=== PATIENT | female | born 1955 | race Caucasian/White ===

== ENCOUNTER 2019-02-20 14:27 | Inpatient (IN) | payer BC, OTHER ==
[~2019-02-20] VITALS: Ht 167.6 cm; Wt 81.0 kg
[2019-02-20] MEDS ORDERED: NOREPINEPHRINE 8 MG/250ML KIT 250 ML IV ONE (14:33)
[2019-02-20] MEDS ORDERED: EPINEPHrine HCL INJECTION 4 MG in SODIUM CHL 0.9% 250 ML IV ONE (15:00)
[2019-02-20] MEDS ORDERED: SODIUM BICARBONATE 8.4 % INJ 50ML VIAL IV ONE ×3 (15:00→17:45)
[2019-02-20] MEDS ORDERED: DOPamine 1600MCG/ML D5W 250 ML IV ONE ×2 (15:00→15:45)
[2019-02-20] MEDS ORDERED: NOREPINEPHRINE 8 MG/250ML KIT 250 ML IV SCH (15:00)
[2019-02-20] MEDS ORDERED: EPINEPHrine HCL 1 MG/10 ML SYRG IV ONE (15:00)
[2019-02-20] MEDS ORDERED: AMIODARONE HCL (50 MG/ ML) 3 ML VIAL IV PRN (15:00)
[2019-02-20] MEDS ORDERED: ATROPINE SULF 1 MG/10ml SYR IV ONE (15:00)
[2019-02-20] MEDS ORDERED: PHENYLEPHRINE INJ 20 MG in SODIUM CHL 0.9% 250 ML IV SCH (15:43)
[2019-02-20] MEDS ORDERED: PIPERACILLIN-TAZOB 3.375GM 100 ML IV ONE (15:45)
[2019-02-20] MEDS ORDERED: VANCOMYCIN 1GM/250ML 250 ML IV ONE (15:45)
[2019-02-20 15:48] LABS: Albumin 2.3 g/dL (3.4-5.0); Calcium 8.9 mg/dL (8.5-10.1); Magnesium 2.7 mg/dL (1.6-2.6); Potassium 3.8 mmol/L (3.5-5.1)
[2019-02-20 15:57] LABS: BUN/Creatinine Ratio 10.4; Bilirubin, Total 0.3 mg/dL (0.2-1.0); Total Protein 4.1 g/dL (6.4-8.2)
[2019-02-20 16:04] LABS: INR 1.4 (0.9-1.15); Partial Thromboplastin Time 45.3 sec (23.78-33.04); Prothrombin Time 14.7 sec (9.27-12.13)
[2019-02-20 16:38] LABS: Basophils # (auto) 0.1 uL; Basophils % (auto) 0.5 % (0.0-2.0); Eosinophils # (auto) 0 uL; Eosinophils % (auto) 0.2 % (0.0-7.0); Hematocrit 37.5 % (36.0-46.0); Hemoglobin 11.3 g/dL (12.2-16.2); Lymphocytes # (auto) 1.5 uL; Lymphocytes % (auto) 7.3 % (10.0-50.0); Mean Corpuscular Hemoglobin 31.6 pg (28.0-32.0); Mean Corpuscular Hgb Conc. 30.1 g/dL (32.0-36.0); Mean Corpuscular Volume 104.7 fL (80.0-100.0); Monocytes # (auto) 1.2 uL; Monocytes % (auto) 6.2 % (0.0-12.0); Neutrophils # (auto) 17.1 uL; Neutrophils % (auto) 85.8 % (37.0-80.0); Nucleated Red Blood Cells % 0.5 %; Platelet Count (auto) 189 10^3/uL (140-450); Red Blood Cells 3.58 10^6/uL (4.0-5.20); Red Cell Distribution Width 16.7 % (11.8-14.3); White Blood Cell 19.9 10^3/uL (4.4-10.8)
[2019-02-20] MEDS ORDERED: SODIUM BICARBONATE 8.4% INJ 50ML SYRINGE ONE ×3 (16:51→17:36)
[2019-02-20] MEDS ORDERED: SODIUM BICARBONATE 50ML VIAL 150 ML in SOD CHL 0.45% 1,000 ML IV ONE (17:15)
[2019-02-20 17:22] LABS: Amylase 101 U/L (25-115); Lipase 589 U/L (73-393)
[2019-02-20] MEDS ORDERED: SODIUM CHLORIDE 0.9% 1,000 ML IV ONE (17:45)
[2019-02-20 18:40] VITALS: BP 115/69
--- NOTE | 2019-02-20 18:40 | NUR ---
Respiratory note: ABG RESULTS REPORTED TO DR. DUMAS, NO NEW RESPIRATORY ORDERS GIVEN. PT REMAINS ON PREVIOUS VENT SETTINGS. WILL CONTINUE TO MONITOR.
[2019-02-20 18:41] LABS: Urine Bacteria NONE SEEN /hpf (None Seen); Urine Blood Negative /uL (Negative); Urine Hyaline Cast MOD /lpf (0 - 2); Urine Mucus FEW (None Seen); Urine Specific Gravity 1.024 (1.001-1.035); Urine WBC 2 /hpf (0 - 5)
[2019-02-20 18:43] LABS: Alcohol, Urine < 3.0 mg/dL (0-5); Amphetamine Screen, Urine NEGATIVE (NEGATIVE); Barbiturate Scree,Urine NEGATIVE (NEGATIVE); Benzodiazephine Screen, Urine NEGATIVE (NEGATIVE); Cannabinoid Screen, Urine NEGATIVE (NEGATIVE); Cocaine Screen, Urine NEGATIVE (NEGATIVE); Opiate Scree,Urine POSITIVE (NEGATIVE); Phencyclidine Screen, Urine NEGATIVE (NEGATIVE)
[2019-02-20] MEDS: NOREPINEPHRINE 8 MG/250ML KIT 250 ML IV SCH ×2 (19:40→23:59)
[2019-02-20] MEDS ORDERED: VANCOMYCIN PER PHARMACY 0 MG IV SCH (19:45)
[2019-02-20 20:00] VITALS: BP 116/71
[2019-02-20] MEDS: PHENYLEPHRINE INJ 20 MG in SODIUM CHL 0.9% 250 ML IV SCH (20:30)
[2019-02-20] MEDS ORDERED: PHENYLEPHRINE IV 0 ML IV ONE (20:31)
[2019-02-20] MEDS ORDERED: EPINEPHrine HCL 250 ML IV ONE (20:33)
[2019-02-20] MEDS: EPINEPHrine HCL INJECTION 4 MG in SODIUM CHL 0.9% 250 ML IV SCH (20:33)
[2019-02-20] MEDS: EPINEPHrine HCL 250 ML IV SCH (20:55)
[2019-02-20] MEDS ORDERED: VANCOMYCIN 750 MG in D5W 5% 250 ML IV SCH (21:00)
[2019-02-20] MEDS: DOPamine 1600MCG/ML D5W 250 ML IV SCH ×2 (21:11→22:02)
[2019-02-20 21:45] VITALS: BP 116/71
[2019-02-20 22:19] VITALS: BP 116/71
[2019-02-20] MEDS: ALBUTEROL SULF 2.5 MG/0.5ML(0.5%) NEB SOLN NEB SCH (22:19)
[2019-02-20] MEDS: IPRATROPIUM BROM 0.5 MG/2.5ML INH SOL NEB SCH (22:19)
[2019-02-20] MEDS: PIPERACILLIN-TAZOB 2.25GM 50 ML IV SCH (22:31)
[2019-02-20] MEDS: PHENYLEPHRINE INJ 20 MG in D5W 5% 250 ML IV SCH (23:00)
[2019-02-20] MEDS: SODIUM BICARBONATE 50ML VIAL 150 ML in D5W 5% 1,000 ML IV SCH (23:13)
[2019-02-21] VITALS (13 sets, daily range): BP systolic 111–152; BP diastolic 62–106
--- NOTE | 2019-02-21 | NUR ---
Patient bathe/linen change Patient given complete bath. Skin integrity assessed for any changes. Linens changed. Patient repositioned for comfort.
--- NOTE | 2019-02-21 00:30 | NUR ---
DRESSING CHANGE RIGHT FEMORAL LINE DRESSING CHANGE
[2019-02-21] MEDS: ALBUTEROL SULF 2.5 MG/0.5ML(0.5%) NEB SOLN NEB SCH ×6 (01:54→21:55)
[2019-02-21] MEDS: IPRATROPIUM BROM 0.5 MG/2.5ML INH SOL NEB SCH ×6 (01:54→21:55)
[2019-02-21] MEDS: SODIUM BICARBONATE 50ML VIAL 150 ML in D5W 5% 1,000 ML IV SCH (02:21)
[2019-02-21] MEDS: DOPamine 1600MCG/ML D5W 250 ML IV SCH ×2 (02:50→19:49)
--- NOTE | 2019-02-21 02:58 | NUR ---
Respiratory note: PT TRANSPORTED TO CT VIA AMBU AND O2 TANK, UNEVENTFUL. PT PLACED BACK ON PREVIOUS SETTINGS. WILL CONTINUE TO MONITOR.
--- NOTE | 2019-02-21 03:25 | NUR ---
Respiratory note: HOSPITALIST PAGED FOR ABG RESULTS. PT SPO2 80% ON 100% FIO2. WILL CONTINUE TO MONITOR.
--- NOTE | 2019-02-21 03:47 | NUR ---
Respiratory note: ABG RESULTS REPORTED TO BASEBALL COACH KHURRAM GUERRERO. INCREASED PEEP TO 8 CMH20. REPEAT ABG AT 0800.
[2019-02-21] MEDS: PHENYLEPHRINE INJ 20 MG in SODIUM CHL 0.9% 250 ML IV SCH (04:00)
[2019-02-21] MEDS: PIPERACILLIN-TAZOB 2.25GM 50 ML IV SCH ×4 (04:20→22:10)
[2019-02-21] MEDS: EPINEPHrine HCL 250 ML IV SCH (04:36)
[2019-02-21 10:18] LABS: Basophils # (auto) 0.1 uL; Basophils % (auto) 0.6 % (0.0-2.0); Eosinophils # (auto) 0 uL; Eosinophils % (auto) 0.1 % (0.0-7.0); Hematocrit 40.6 % (36.0-46.0); Hemoglobin 13.2 g/dL (12.2-16.2); Lymphocytes # (auto) 0.3 uL; Lymphocytes % (auto) 1.7 % (10.0-50.0); Mean Corpuscular Hgb Conc. 32.6 g/dL (32.0-36.0); Mean Corpuscular Volume 98.1 fL (80.0-100.0); Monocytes # (auto) 0.5 uL; Monocytes % (auto) 2.8 % (0.0-12.0); Neutrophils # (auto) 17.3 uL; Neutrophils % (auto) 94.8 % (37.0-80.0); Platelet Count (auto) 165 10^3/uL (140-450); Red Blood Cells 4.15 10^6/uL (4.0-5.20); Red Cell Distribution Width 15.5 % (11.8-14.3); White Blood Cell 18.2 10^3/uL (4.4-10.8)
[2019-02-21 10:28] LABS: INR 1.68 (0.9-1.15); Partial Thromboplastin Time 28.7 sec (23.78-33.04); Prothrombin Time 17.5 sec (9.27-12.13)
[2019-02-21 10:30] LABS: Calcium 6.6 mg/dL (8.5-10.1); Lactic Acid w/Reflex 8.7 mmol/L (0.4-2.0); Magnesium 1.2 mg/dL (1.6-2.6)
[2019-02-21 10:32] LABS: BUN/Creatinine Ratio 13.3
[2019-02-21 10:54] LABS: Potassium 2.3 mmol/L (3.5-5.1)
[2019-02-21] MEDS ORDERED: POTASSIUM CHLORIDE 40 MEQ, LIDOCAINE 1% (LOCAL ANESTH.) 4 ML in SODIUM CHL 0.9% 100 ML IV ONE (11:30)
[2019-02-21] MEDS: PHENYLEPHRINE INJ 20 MG in D5W 5% 250 ML IV SCH ×2 (12:07→16:10)
[2019-02-21] MEDS ORDERED: POTASSIUM PHOSPHATE 44 MEQ in D5W 5% 250 ML IV ONE (12:15)
[2019-02-21] MEDS: MAGNESIUM SULFATE 1GM/100ML 100 ML IV SCH ×3 (12:21→14:57)
[2019-02-21] MEDS: LINEZOLID 600MG/300ML 300 ML IV SCH ×2 (12:41→22:09)
[2019-02-21] MEDS ORDERED: EPINEPHrine HCL 1 MG/10 ML SYRG IV ONE (12:49)
[2019-02-21] MEDS ORDERED: AMIODARONE HCL (50 MG/ ML) 3 ML VIAL IV ONE (12:49)
[2019-02-21] MEDS ORDERED: ATROPINE SULF 1 MG/10ml SYR IV ONE (12:49)
[2019-02-21] MEDS ORDERED: CALCIUM CHLOR(10%) 100MG/ML 10ML SYRINGE IV ONE (12:49)
[2019-02-21] MEDS: ALBUMIN 25% 100 ML IV SCH ×2 (13:38→19:56)
[2019-02-21] MEDS ORDERED: FUROSEMIDE 40 MG/4 ML VIAL IV ONE (13:45)
[2019-02-21] MEDS: EPINEPHrine HCL INJECTION 4 MG in SODIUM CHL 0.9% 250 ML IV SCH (21:09)
[2019-02-22] VITALS (83 sets, daily range): BP systolic 88–143; BP diastolic 41–81
[2019-02-22] MEDS: NOREPINEPHRINE 8 MG/250ML KIT 250 ML IV SCH ×2 (00:52→22:34)
[2019-02-22] MEDS: SODIUM CHLORIDE 0.9% 2,000 ML IV ONE (01:15)
[2019-02-22] MEDS: IPRATROPIUM BROM 0.5 MG/2.5ML INH SOL NEB SCH ×6 (02:05→22:43)
[2019-02-22] MEDS: ALBUTEROL SULF 2.5 MG/0.5ML(0.5%) NEB SOLN NEB SCH ×6 (02:05→22:40)
--- NOTE | 2019-02-22 03:23 | NUR ---
Admit to ICU from ER on vent MARLYS HURST admitted to ICU via gurney on restoration technician, intubated and being bagged by Respiratory Therapist. Patient transferred to bed, connected to mechanical ventilator by therapist, MIGUEL ÁNGEL at bedside. Patient connected to ICU monitoring, weighed by bedscale, oriented to Ira Klein, primary RN, unit, ventilator and no sedation was given but pt is nonresponsive even to painful stimuli, pupils 6 on both eyes and fixed. NOTE: Right IJ, right wrist and left femoral central line patent and intact, coleman catheter draining to a clear urine, NGT connected to LIS. MRSA swab in the nares done and sent to lab.
[2019-02-22] MEDS ORDERED: EPINEPHrine HCL 250 ML IV ONE (03:36)
[2019-02-22] MEDS: EPINEPHrine HCL INJECTION 4 MG in SODIUM CHL 0.9% 250 ML IV SCH ×2 (03:47→22:35)
--- NOTE | 2019-02-22 04:00 | NUR ---
Medrec and vaccination assessment not done, no family at bedside
[2019-02-22] MEDS: PIPERACILLIN-TAZOB 2.25GM 50 ML IV SCH ×4 (04:10→23:43)
[2019-02-22] MEDS: ALBUMIN 25% 100 ML IV SCH (04:10)
--- NOTE | 2019-02-22 04:30 | NUR ---
WOUND PHOTO IN THE LEFT WRIST TAKEN, SKIN TEAR NOTED AND PLACED OPTIFOAM IN THE AFFECTED WRIST
[2019-02-22] MEDS: DOPamine 1600MCG/ML D5W 250 ML IV SCH (04:38)
--- NOTE | 2019-02-22 06:00 | NUR ---
VITAL SIGNS VITAL SIGNS FROM 02/21 0200 UNTIL 0800 ARE IN PATIENTS CHART. UNABLE TO TRANSFER ON LINE
--- NOTE | 2019-02-22 06:50 | NUR ---
PAGED THE HOSPITALIST FOR LOW URINE OUTPUT, 20ML SINCE 329
--- NOTE | 2019-02-22 06:50 | NUR ---
Called lab to ff up CBC, CMP
[2019-02-22] MEDS: PHENYLEPHRINE INJ 20 MG in D5W 5% 250 ML IV SCH ×4 (08:20→16:16)
--- NOTE | 2019-02-22 09:30 | NUR ---
CHANNEL LIP STIFFENER INSOLES AT BEDSIDE
--- NOTE | 2019-02-22 09:45 | NUR ---
MD ROUNDS DR. CASIANO AT BEDSIDE. PER MD FAMILY IS AWARE OF PATIENTS POOR CONDITION. NO NEW ORDERS AT THIS TIME.
--- NOTE | 2019-02-22 09:55 | NUR ---
EEG COMPLETED AT BEDSIDE. CASEY REYES.
[2019-02-22] MEDS: LINEZOLID 600MG/300ML 300 ML IV SCH ×2 (10:00→21:36)
--- NOTE | 2019-02-22 10:20 | NUR ---
PENDING LABS LABS NOT YET TAKEN, CALLED LAB TO CONFIRM AND STATED THEY WERE UNABLE TO OBTAIN SAMPLE THIS MORNING AND NURSE WAS TO SEND OVER. NO COMMUNICATION OF SUCH THING REPORT. LABS DRAWN AND SENT OVER.
[2019-02-22 10:36] LABS: Hematocrit 37.1 % (36.0-46.0); Hemoglobin 12.2 g/dL (12.2-16.2); Mean Corpuscular Hemoglobin 31.6 pg (28.0-32.0); Mean Corpuscular Hgb Conc. 32.9 g/dL (32.0-36.0); Mean Corpuscular Volume 95.9 fL (80.0-100.0); Platelet Count (auto) 78 10^3/uL (140-450); Red Blood Cells 3.87 10^6/uL (4.0-5.20); Red Cell Distribution Width 15.2 % (11.8-14.3); White Blood Cell 22.4 10^3/uL (4.4-10.8)
--- NOTE | 2019-02-22 10:36 | NUR ---
WOUND CARE NOTE: Wound care in to see patient per wound care request regarding skin integrity issue that are noted present on admission, intubation status,and low Valerio score of 11, putting patient to high risk for skin breakdown. Patient is 63 years old female with admitting diagnosis of Cardiopulmonary Arrest. She has history of CVA and Asthma. Patient is resting in ICU premium bed in Rm. 111. She's intubated, sedated and mechanically ventilated. Patient appears to be in no pain using Ferguson Wong Faces Pain Scale. Skin assessment done with the assistance of patient's nurse, CASEY Vizcarra. Noted open partial thickness skin tear to patient's L wrist (4x2cm) and L posterolateral back (3x1cm) Skin tears are pink/ red, scant serous drainage noted,no odor noted. Bedside nurse cleansed patient's wounds and covered with Opti foam gentle dressing as MD ordered. Patient's L arm noted edematous and intact ecchymosis noted to her L lateral ankle. No pressure injury related issue noted. Repositioned patient for comfort facing her Rt. side, redistributed pressure points with pillows. Patient tolerated well. CASEY Vizcarra at bedside. RECOMMENDATION: Q3Days/PRN dressing change to skin tears; BID/PRN cleaning and application of Barrier cream to sacral, buttocks and perineum as preventative per MD order, Dietary consult for low Valerio score, frequent turning and repositioning schedule as condition permits, redistribute pressure points with pillows, elevate heels on pillows, Continue monitoring by Wound care while patient is mechanically ventilated. Addendum: 02/22/19 at 1459 by Gifty Genao RN Amended: Links added.
[2019-02-22 10:42] LABS: Basophils % (manual) 0 (0.0-2.0); Blast Cells 0; Myelocytes % 0; Promyelocytes % 0; Reactive Lymphocytes 0
[2019-02-22 10:50] LABS: Albumin 2.5 g/dL (3.4-5.0); Potassium 3.7 mmol/L (3.5-5.1)
[2019-02-22 10:52] LABS: BUN/Creatinine Ratio 17.5; Bilirubin, Total 1.2 mg/dL (0.2-1.0)
--- NOTE | 2019-02-22 11:00 | NUR ---
Family updated on pt status Family of MARLYS HURST updated on patient's status and condition. All questions and concerns addressed. ADA verbalized understanding. Per JORDAN Chiang and other members of family, password is to be used for door entrance.
[2019-02-22 11:02] LABS: Calcium 5.9 mg/dL (8.5-10.1)
--- NOTE | 2019-02-22 11:27 | NUR ---
COMMERCIAL REVIEW APPRAISER PAGED LABS RESULTED AND CRITICAL CALCIUM NOTED. MD PAGED TO NOTIFY ALONG WITH CURRENT U/O NOTED THIS SHIFT. AWAITING CALLBACK.
--- NOTE | 2019-02-22 11:28 | NUR ---
Family updated on pt status Family of MARLYS HURST updated on patient's status and condition. All questions and concerns addressed. Family verbalized understanding.
--- NOTE | 2019-02-22 11:34 | NUR ---
CALLED BACK STATING HE IS ON HIS WAY. NO NEW ORDERS AT THIS TIME.
--- NOTE | 2019-02-22 11:35 | NUR ---
DR. CASIANO PAGED FAMILY AT BEDSIDE REQUESTING RESULTS TO EEG. AWAITING CALLBACK.
--- NOTE | 2019-02-22 12:30 | NUR ---
EMAIL PRODUCTION SPECIALIST UPDATED DR. ZARCO CALLED, UPDATED ON PATIENTS STATUS VIA PHONE. MD STATING HE WILL NOT BE ABLE TO SEE PATIENT UNTIL LATER TONIGHT. NO URGENT MATTERS AT THIS TIME.
[2019-02-22 12:52] LABS: Band Neutrophils % (manual) 20; Eosinophils % (manual) 1 (0-7); Lymphocytes % (manual) 4 (10.0-50.0); Metamyelocytes % 3; Monocytes % (manual) 7 (0-12)
--- NOTE | 2019-02-22 13:00 | NUR ---
SURGICAL CONSULT DR. LEWIS CALLED, UPDATED ON CT OF ABD AND PATIENTS CURRENT CONDITION, AWAITING NEUROLOGISTS RESULTS. MD STATING HE IS TO BE CALLED BACK ONCE PATIENTS NEUROLOGICAL STANDPOINT IS CLEAR AT THIS TIME. JORDAN CABALLERO, AWARE OF MDS RESPONSE, ADA, AGREED STATING SHE DOES NOT WANT ANY PROCEDURES UNTIL DR. CASIANO HAS UPDATED ON HER STATUS.
--- NOTE | 2019-02-22 13:08 | NUR ---
COPY OF POA IN CHART UPDATED ADA AT BEDSIDE ON PATIENTS STATUS. AWAITING DR. CASIANO TO CALLBACK TO REVIEW EGD RESULTS. REPAGED.
[2019-02-22] MEDS ORDERED: FUROSEMIDE 20 MG/2 ML VIAL IV ONE (14:15)
--- NOTE | 2019-02-22 14:18 | NUR ---
CHECK INSPECTOR AT BEDSIDE MD UPDATED FAMILY ON PATIENTS STATUS. QUESTIONS AND CONCERNS ADDRESSED. SEE NEW ORDERS.
--- NOTE | 2019-02-22 16:43 | NUR ---
IMAGES REVIEWED WITH FAMILY DR. CASIANO AT BEDSIDE. MD REVIEWED LATEST HEAD CT AND EEG RESULTS. MD NOTIFIED OF POOR CONDITION AND POOR OUTCOME AT THIS TIME. QUESTIONS AND CONCERNS ADDRESSED WITH FAMILY AND POA. MD ENCOURAGED FAMILY AND FRIENDS TO VISIT AT THIS TIME. PER JORDAN CABALLERO, PATIENT WOULD NOT WANT LIFE PROLONGED WITH POOR NEURO CONDITION. COMFORT CART CALLED AT THIS TIME.
[2019-02-22] MEDS ORDERED: CALCIUM GLUC 4.65meq/50ml D5AE 50 ML IV ONE (18:30)
--- NOTE | 2019-02-22 18:30 | NUR ---
NG REMOVAL PATIENT REPOSITIONED AND APPEARS TO HAVE AN AIR LEAK, R.T AT BEDSIDE. PER R.T VOLUMES ARE LOW AND NOT CONSISTENT WITH PREVIOUS TV NOTED. INFORMED ONLY CHANGE HAS BEEN POSITION. PER R.T RECOMMENDING REMOVAL OF NG. NG REMOVED AT THIS TIME.
--- NOTE | 2019-02-22 18:35 | NUR ---
CHRISTMAS TREE FARM WORKER RAHEEL PATIENT DID NOT RESPOND TO LASIX 60MG IV. NO U/O. AWAITING CALLBACK
--- NOTE | 2019-02-22 19:21 | NUR ---
DR. CARABALLO CALLED BACK. NEW ORDERS IN PLACE.
[2019-02-22] MEDS ORDERED: FUROSEMIDE INJECTION 250 MG in SODIUM CHL 0.9% 225 ML IV SCH (19:30)
--- NOTE | 2019-02-22 19:45 | NUR ---
OPEN NOTES ASSUMED CARE OF PATIENT. ASSESSMENT DONE-REFER INTERVENTIONS GCS 3, PUPILS 6MM FIXED, NO RESPONSE NOTED SINUS TACHYCARDIA, BP SUPPORTED WITH IV LEVOPHED,IV DOPAMINE AND IV EPI GTT ALL LIMBS EDEMATOUS,PULSES PALPABLE. STILL NO URINE OUTPUT - WILL START IV LASIX GTT RIGHT FEMORAL WITH ZOLL CATHETER-DRESSING DRY AND INTACT, BROWN PORT CAN FLUSH BUT NO BACKFLOW RIGHT EJ G18 -SALINE FLUSHED REPOSITIONED.ORAL CARE DONE.
--- NOTE | 2019-02-22 20:50 | NUR ---
CODE STATUS TALKED TO PATIENT'S SON JUAN DIEGO AND JORDAN ADA ABOUT CODE STATUS THEY REQUEST TO PUT PATIENT ON CHEM CODE ONLY - ACLS MEDS CAN BE GIVEN. ADA SAID NO MORE HEROIC MEASURES, NO CPR, TO KEEP PATIENT ON THE PRESSORS SHE HAS ON AND KEEP HER VENTILATED. PAGED HOSPITALIST
--- NOTE | 2019-02-22 21:58 | NUR ---
RE PAGED HOSPITALIST
--- NOTE | 2019-02-22 21:59 | NUR ---
HOSPITALIST CALLED BACK TALKED TO REMI GUERRERO. INFORMED HER OF SON AND POA DECISION REGARDING CODE STATUS THEY WANTED CHEM CODE REMI GUERRERO NOTED , SHE WILL GO HERE IN ICU AND SIGN THE FORM
--- NOTE | 2019-02-22 23:38 | NUR ---
HOSPITALIST REMI GUERRERO SIGNED THE CODE FORM ASKED ABOUT PAIN MEDICATION FOR COMFORT- NO ORDERS RECEIVED Addendum: 02/22/19 at 2354 by Lilian Owens RN NO PAIN NOTED AT THE MOMENT GCS 3 HR 107/MIN - PRESSOR WAS INCREASED EARLIER WILL CONTINUE TO MONITOR
[2019-02-23] VITALS (81 sets, daily range): BP systolic 86–131; BP diastolic 34–79
--- NOTE | 2019-02-23 00:05 | NUR ---
TEMP TEMP 99.7F COOLING MEASURES DONE
--- NOTE | 2019-02-23 00:43 | NUR ---
PAGED NEPHRO TO CLARIFY ORDER
[2019-02-23] MEDS: PHENYLEPHRINE INJ 20 MG in D5W 5% 250 ML IV SCH ×3 (01:00→08:08)
[2019-02-23] MEDS: SODIUM CHLORIDE 0.9% 2,000 ML IV ONE (01:15)
--- NOTE | 2019-02-23 01:15 | NUR ---
MD EDWARDS HAS NOT CALLED BACK DR. CARABALLO HAS NOT CALLED BACK. NS BOLUS DISCUSSED WITH CHARGE NURSE CLAUDIA. PATIENT ONLY HAS 30MLS OF URINE SINCE IV LASIX WAS STARTED AT START OF SHIFT. IV LASIX GTT AT 10ML/HR PATIENT LUNG SOUNDS CLEAR LIMBS ARE EDEMATOUS, BP FLUCTUATES ON IV LEVOPHED,DOPAMINE AND EPI GTT WILL GIVE NS BOLUS 1L FIRST THEN WILL ASSESS
[2019-02-23] MEDS: NOREPINEPHRINE 8 MG/250ML KIT 250 ML IV SCH (01:21)
--- NOTE | 2019-02-23 02:00 | NUR ---
TEMP RE CHECK TEMP 99F WILL CONTINUE TO MONITOR
[2019-02-23] MEDS: ALBUTEROL SULF 2.5 MG/0.5ML(0.5%) NEB SOLN NEB SCH ×4 (02:24→14:27)
[2019-02-23] MEDS: IPRATROPIUM BROM 0.5 MG/2.5ML INH SOL NEB SCH ×4 (02:24→14:27)
--- NOTE | 2019-02-23 03:08 | NUR ---
RE-ASSESS/NS BOLUS NS 1L GIVEN PATIENT STILL HAS LOW URINE OUTPUT LUNG SOUNDS COARSE,CRACKLES AT THE UPPER LOBES DIMINISHED AT THE BASES WILL HOLD THE OTHER 1L NS FOR NOW
[2019-02-23] MEDS: DOPamine 1600MCG/ML D5W 250 ML IV SCH (03:36)
[2019-02-23 03:54] LABS: Hematocrit 33.1 % (36.0-46.0); Hemoglobin 10.9 g/dL (12.2-16.2); Mean Corpuscular Hemoglobin 31.8 pg (28.0-32.0); Mean Corpuscular Hgb Conc. 33.1 g/dL (32.0-36.0); Mean Corpuscular Volume 95.9 fL (80.0-100.0); Platelet Count (auto) 70 10^3/uL (140-450); Red Blood Cells 3.45 10^6/uL (4.0-5.20); Red Cell Distribution Width 15.1 % (11.8-14.3); White Blood Cell 21.7 10^3/uL (4.4-10.8)
--- NOTE | 2019-02-23 04:00 | NUR ---
Patient bathe/linen change Patient given complete bath. Hair washed. Skin integrity assessed for any changes. Linens changed. Patient repositioned for comfort.
[2019-02-23 04:15] LABS: BUN/Creatinine Ratio 16.1; Potassium 4.5 mmol/L (3.5-5.1)
[2019-02-23 04:19] LABS: Bilirubin, Total 1.3 mg/dL (0.2-1.0); Calcium 5.8 mg/dL (8.5-10.1); Total Protein 3.9 g/dL (6.4-8.2)
--- NOTE | 2019-02-23 04:30 | NUR ---
SKIN/DRESSING CHANGED PATIENT HAS SKIN TEAR AT RIGHT WRIST AND RIGHT UPPER BACK - CLEANED , APPLIED THERA HONEY GEL LEFT WRIST - COVERED WITH OPTIFOAM NON ADHERENT AND WRAPPED WITH BANDAGE LEFT UPPER BACK - OPTIFOAM GENTLE LEFT UPPER ARM WITH MULTIPLE BLISTERS, RED AND WEEPING - CHUX APPLIED UNDERNEATH BOTH UPPER LIMBS SWOLLEN -BOTH ELEVATED WITH PILLOW SACRAL - INTACT
--- NOTE | 2019-02-23 04:31 | NUR ---
CRITICAL LAB RESULTS LAB STAFF CALLED TO REPORT CRITICAL LAB RESULTS CALCIUM 5.8, GLUCOSE 46, TROP 5.04 RE-CHECK BLOOD SUGAR PERIPHERALLY = 44 AWAITING CBC RESULTS THEN WILL PAGE HOSPITALIST
[2019-02-23 04:42] LABS: Basophils % (manual) 0 (0.0-2.0); Blast Cells 0; Metamyelocytes % 0; Myelocytes % 0; Promyelocytes % 0; Reactive Lymphocytes 0
--- NOTE | 2019-02-23 04:49 | NUR ---
HOSPITALIST PAGED FOR LAB RESULTS
[2019-02-23] MEDS ORDERED: DEXTROSE 50% SYRINGE 50 ML IV ONE ×2 (05:28→13:50)
[2019-02-23] MEDS ORDERED: CALCIUM GLUC 4.65meq/50ml D5AE 50 ML IV ONE (05:30)
[2019-02-23] MEDS ORDERED: DEXTROSE (50%) 50ML SYRG IV ONE (05:30)
[2019-02-23] MEDS: PIPERACILLIN-TAZOB 2.25GM 50 ML IV SCH ×2 (05:30→09:44)
[2019-02-23] MEDS ORDERED: DEXTROSE (50%) 50ML SYRG IV PRN (05:30)
--- NOTE | 2019-02-23 06:36 | NUR ---
RT NOTE: PT FOUND ON PEEP OF 8. VENT ORDERS OF 02/21 WERE PEEP OF 10, SO PEEP INCREASED TO 10 PER ORDER. O2 DECREASED TO 80%. WILL CONTINUE TO MONITOR.
[2019-02-23 06:49] LABS: Band Neutrophils % (manual) 23; Eosinophils % (manual) 2 (0-7); Lymphocytes % (manual) 2 (10.0-50.0); Monocytes % (manual) 4 (0-12)
[2019-02-23] MEDS: ACCU-CHEK COMFORT CURVE STRIP VI SCH ×2 (07:00→13:58)
--- NOTE | 2019-02-23 07:00 | NUR ---
BLOOD SUGAR BLOOD SUGAR RE-CHECK = 68 MG/DL AFTER 1 HOUR IV DEXTROSE 50%
--- NOTE | 2019-02-23 07:01 | NUR ---
REPORT REPORT GIVEN TO CASEY NEWSOME
--- NOTE | 2019-02-23 08:00 | NUR ---
Cooling Measures applied. Patient currently has temp of 99.6 , cooling measures in place.
--- NOTE | 2019-02-23 08:45 | NUR ---
RADIOLOGY RESULT RADIOLOGIST CALLED WITH A.M. CXR RESULTS STATING LARGE RIGHT PNEUMOTHORAX. HOSPITALIST PAGED. AWAITING CALLBACK. POA, ADA CALLED TO NOTIFY OF RESULTS TO DETERMINE LENGTH OF TREATMENT REQUESTED PATIENT IS CURRENTLY MODIFIED DNR. ADA UPDATED ON RESULTS ALONG WITH RISKS. ADA STATING SHE WAS EXPECTING TO WITHDRAW LIFE SUPPORT AFTER FAMILY AND FRIENDS ARRIVED TODAY. ADA STATING SHE DOES NOT WANT ANY INVASIVE TREATMENT SUCH CHEST TUBE A THIS TIME. ADA AWARE RISK IS NOT LIMITED AND CAN RESULTS IN , ADA VERBALIZED UNDERSTANDING AND STATING SHE WILL CONTACT FAMILY AT THIS TIME.
--- NOTE | 2019-02-23 09:31 | NUR ---
PATIENTS CURRENT RESP STATUS, CURRENT POX 98% CURRENT PIP 32, FI02 70% TV REMAINING 550 AND ABOVE.
[2019-02-23] MEDS: LINEZOLID 600MG/300ML 300 ML IV SCH (09:44)
--- NOTE | 2019-02-23 10:30 | NUR ---
RESOLUTION MANAGER DR. CARABALLO UPDATED ON PATIENTS STATUS. MD AWARE OF NO U/O WITH GTT. NO NEW ORDERS AT THIS TIME. MD AWARE OF POSSIBLE TERMINAL WEAN ONCE PATIENT IS PRESENT AND AVAILABLE.
--- NOTE | 2019-02-23 10:30 | NUR ---
NEUROLOGIST DR. CASIANO AT BEDSIDE. MD UPDATED FAMILY ON PATIENTS STATUS. SEE NEW ORDERS.
--- NOTE | 2019-02-23 10:31 | NUR ---
VENT CHANGES DR. MALDONADO UPDATED ON PATIENT STATUS. NEW ORDERS IN PLACE. R.T AT BEDSIDE AWARE AND MAKING ADJUSTMENTS.
--- NOTE | 2019-02-23 11:35 | NUR ---
ADA ORTEGA AND FRIEND AT BEDSIDE REQUESTING COMFORT MEASURE TO BE PROVIDED WITH CURRENT PRESSORS IN PLACE. NEW ORDER IN PLACE.
[2019-02-23] MEDS ORDERED: MORPHINE SULFATE 4 MG/ML SYR/VIAL IV PRN (11:45)
--- NOTE | 2019-02-23 12:15 | NUR ---
RT NOTE: O2 DECREASED FROM 95% TO 80%. WILL CONTINUE TO MONITOR.
--- NOTE | 2019-02-23 14:01 | NUR ---
BLOOD SUGAR READING 53. 1 AMP DEXTROSE GIVEN PER PROTOCOL. PT REMAINS VENTED/ UNRESPONSIVE.
--- NOTE | 2019-02-23 14:32 | NUR ---
BLOOD SUGAR RECHECK 106. NO INTERVENTIONS AT THIS TIME.
--- NOTE | 2019-02-23 14:35 | NUR ---
RT NOTE: O2 INCREASED TO 85% DUE TO SPO2 BEING BETWEEN 91-92%. RN NOTIFIED. WILL CONTINUE TO MONITOR.
[2019-02-23] MEDS ORDERED: cefTRIAXone 1GM/50ML D5W 50 ML IV SCH (15:30)
[2019-02-23] MEDS ORDERED: LORazepam 2MG/ML-1ML VIAL IV PRN (17:30)
[2019-02-23] MEDS ORDERED: MORPHINE SULF INJ 2 MG/ML SYRINGE 1ML IV PRN (17:30)
--- NOTE | 2019-02-23 17:32 | NUR ---
spoke with family regarding wishes to terminally wean patient. Family understands all aspects of weaning and understands that the outcome is . All questions and concerns addressed by Provider and by nursing. All family present, and is wishing to withdraw care at this time. Amrit grayd. Family requesting morphine to be administered with wean for comfort.
[2019-02-23] MEDS ORDERED: FUROSEMIDE 20 MG/2 ML VIAL IV SCH (18:00)
--- NOTE | 2019-02-23 18:04 | NUR ---
TERMINAL WEAN PERFORMED AT BEDSIDE WITH R.T. COMFORT MEASURES FOLLOWED.
--- NOTE | 2019-02-23 18:17 | NUR ---
Time of 1816. REMI Quintana in room to pronounce.
--- NOTE | 2019-02-23 18:30 | NUR ---
FAMILY HAS PROVIDED INFORMATION FOR MORTUARY. ALL PAPER WORK COMPLETED. FAMILY REQUESTING TO BE CALLED WHEN BODY PICKED UP JUAN DIEGO, SON - [phone]
--- NOTE | 2019-02-23 18:56 | NUR ---
[facility] CONTACTED AND PATIENT DOES NOT MEET CRITERIA FOR DONATION AND BODY TO BE RELEASED.
--- NOTE | 2019-02-23 19:08 | NUR ---
[employer] CALLED. UPDATE ON PATIENTS INFORMATION. AWAITING CALLBACK.
--- NOTE | 2019-02-23 20:46 | NUR ---
called to follow up Event Producer She said they are busy but will call be back as soon as possible
--- NOTE | 2019-02-23 21:38 | NUR ---
[facility] CALLED BACK BODY RELEASED SENIOR UI DEVELOPER NAME: ZBIGNIEW HOLLANDEMILY
--- NOTE | 2019-02-23 21:45 | NUR ---
BODY CLEANED LINES AND TUBES REMOVED BODY PLACED IN THE BODY BAG
[2019-02-23] MEDS ORDERED: CLINDAMYCIN 600MG IV 50 ML IV SCH (22:00)
--- NOTE | 2019-02-23 22:20 | NUR ---
CALLED [facility] PATIENT PARTICULARS GIVEN SHE WILL ASK THE STAFF TO CALL ME BACK WITH ETA
--- NOTE | 2019-02-23 23:00 | NUR ---
CALLED FAMILY TALKED TO PATIENT'S [id number] PEARL. CORRECT PASSWORD WAS OBTAINED. PATIENT'S SON JUAN DIEGO WAS ASLEEP ALREADY ACCORDING TO HIM. INFORMED THAT THE SERVICE WAS ALREADY CALLED BUT ETA NOT AVAILABLE YET. SHE VERBALIZED UNDERSTANDING.
--- NOTE | 2019-02-23 23:40 | NUR ---
BODY TAKEN BY SERVICE
== END 2019-02-23 22:59 | disposition expired | DRG 871 ==
LOC: EDBD 14:27 → ER 14:31 → ICU WEST 19:47 → TELE 20:11 → ICU WEST 02-22 04:03
PROVIDERS: ADMIT Nurse Practitioner Acute Care; ATTEND Internal Medicine
PROC: 5A12012 Performance of Cardiac Output, Single, Manual (ICD-10-PCS; principal; 2019-02-20)
PROC: 02H633Z Insertion of Infusion Device into Right Atrium, Percutaneous Approach (ICD-10-PCS; 2019-02-20)
PROC: 5A1945Z Respiratory Ventilation, 24-96 Consecutive Hours (ICD-10-PCS; 2019-02-20)
PROC: 0BH17EZ Insertion of Endotracheal Airway into Trachea, Via Natural or Artificial Opening (ICD-10-PCS; 2019-02-20)
PROC: 0JH63XZ Insertion of Tunneled Vascular Access Device into Chest Subcutaneous Tissue and Fascia, Percutaneous Approach (ICD-10-PCS; 2019-02-20)
PROC: 02H633Z Insertion of Infusion Device into Right Atrium, Percutaneous Approach (ICD-10-PCS; 2019-02-20)
DX: A41.9 Sepsis, unspecified organism (principal); E43 Unspecified severe protein-calorie malnutrition; S22.21XA Fracture of manubrium, initial encounter for closed fracture; S22.43XA Multiple fractures of ribs, bilateral, initial encounter for closed fracture; G93.41 Metabolic encephalopathy; G93.5 Compression of brain; G93.6 Cerebral edema; I21.4 Non-ST elevation (NSTEMI) myocardial infarction; J69.0 Pneumonitis due to inhalation of food and vomit; J96.21 Acute and chronic respiratory failure with hypoxia; J96.22 Acute and chronic respiratory failure with hypercapnia; N17.0 Acute kidney failure with tubular necrosis; R65.21 Severe sepsis with septic shock; E87.4 Mixed disorder of acid-base balance; G93.1 Anoxic brain damage, not elsewhere classified; I48.92 Unspecified atrial flutter; K57.20 Diverticulitis of large intestine with perforation and abscess without bleeding; S27.0XXA Traumatic pneumothorax, initial encounter; F17.200 Nicotine dependence, unspecified, uncomplicated; E83.51 Hypocalcemia; E87.6 Hypokalemia; G89.4 Chronic pain syndrome; I48.91 Unspecified atrial fibrillation; J44.9 Chronic obstructive pulmonary disease, unspecified; M06.9 Rheumatoid arthritis, unspecified; N18.9 Chronic kidney disease, unspecified; R57.0 Cardiogenic shock; X58.XXXA Exposure to other specified factors, initial encounter; Y93.89 Activity, other specified; Y99.8 Other external cause status; Z96.641 Presence of right artificial hip joint; M19.90 Unspecified osteoarthritis, unspecified site; Z82.49 Family history of ischemic heart disease and other diseases of the circulatory system; I25.2 Old myocardial infarction; Z86.73 Personal history of transient ischemic attack (TIA), and cerebral infarction without residual deficits; Z68.28 Body mass index [BMI] 28.0-28.9, adult; Z88.1 Allergy status to other antibiotic agents
CPT/HCPCS: 31500; 36415; 36556; 36600; 51702; 70450; 71045; 71250; 74176; 80048; 80053; 80061; 80307; 81001; 82150; 82550; 82805; 82962; 83036; 83605; 83690; 83735; 83880; 84100; 84443; 84484; 85007; 85025; 85027; 85379; 85610; 85730; 87040; 87070; 87077; 87081; 87186; 87205; 92950; 93306; 94003; 94640; 95819; 96365; 96366; 96368; 96375; 96376; 99291; A4618; A6257; G0378; J0171; J0610; J0696; J2001; J2543; J7060; P9047